=== PATIENT | female | born 1990 | race Caucasian/White ===

== ENCOUNTER 2018-04-22 15:27 | Emergency (ER) | payer MEDICAID ==
[~2018-04-22 15:27] MED LIST: FEXO1TAB8 PO; FLUT16SP2 BOTHNARES
== END 2018-04-22 16:58 | disposition left against medical advice (07) ==
LOC: ER 15:27
DX: R10.9 Unspecified abdominal pain (principal); Z53.21 Procedure and treatment not carried out due to patient leaving prior to being seen by health care provider

== ENCOUNTER 2019-05-25 12:20 | Emergency (ER) | payer MEDICAID ==
[~2019-05-25] VITALS: Ht 162.6 cm; Wt 63.6 kg
[2019-05-25 12:32] VITALS: BP 106/68
[2019-05-25] MEDS ORDERED: TETanus/Pertussis (Acell)/Diphther VAC/PF (Tdap-Adult) 0.5ml syringe IM ONE (12:45)
== END 2019-05-25 13:00 | disposition home or self-care (01) ==
LOC: ER 12:21
DX: S61.210A Laceration without foreign body of right index finger without damage to nail, initial encounter (principal); J45.909 Unspecified asthma, uncomplicated; Z98.890 Other specified postprocedural states; Z79.899 Other long term (current) drug therapy; W26.8XXA Contact with other sharp object(s), not elsewhere classified, initial encounter; Y93.89 Activity, other specified; Y92.89 Other specified places as the place of occurrence of the external cause; Y99.8 Other external cause status
CPT/HCPCS: 90471; 99283

== ENCOUNTER 2023-08-12 09:29 | Emergency (ER) | payer MEDICAID ==
[~2023-08-12] VITALS: Ht 162.6 cm; Wt 77.3 kg
[2023-08-12 10:14] VITALS: BP 128/86; PULSE 82; O2SAT 98
[2023-08-12] MEDS ORDERED: ketorolac trometh. 30mg/ml inj. IM ONE (10:30)
[2023-08-12] MEDS ORDERED: orphenadrine citrate 60mg/2ml inj. IM ONE (10:30)
[2023-08-12] MEDS ORDERED: IBUP-1984 PO (10:49)
[2023-08-12] MEDS ORDERED: METH4TAB81 PO (10:49)
[2023-08-12 10:50] VITALS: RESP 20
[2023-08-12 10:58] VITALS: TEMP 98.8
== END 2023-08-12 11:03 | disposition home or self-care (01) ==
LOC: ER 09:29
DX: M43.6 Torticollis (principal); J45.909 Unspecified asthma, uncomplicated; Z79.899 Other long term (current) drug therapy
CPT/HCPCS: 96372; 99284; J1885; J2360